=== PATIENT | male | born 1955 | race Caucasian/White ===

== ENCOUNTER 2017-12-16 10:30 | Inpatient (IN) | payer OTHER, MEDICARE, MEDICAID ==
[~2017-12-16] VITALS: Ht 175.3 cm; Wt 92.5 kg
[2017-12-16 11:16] LABS: BASOPHILS # (AUTO) 0.7 /CMM (0.0-0.2); BASOPHILS % (AUTO) 4.2 % (0.0-2.0); EOSINOPHILS # (AUTO) 0.1 /CMM (0.0-0.7); EOSINOPHILS % (AUTO) 0.9 % (0.0-6.0); HEMATOCRIT 34 % (39-51); HEMOGLOBIN 11.5 g/dL (13.5-17.5); LYMPHOCYTES # (AUTO) 2.2 /CMM (0.8-4.8); LYMPHOCYTES % (AUTO) 13.7 % (20.0-44.0); MEAN CORPUSCULAR HEMOGLOBIN 27 PG (26.0-33.0); MEAN CORPUSCULAR HGB CONC 33 g/dl (31.0-36.0); MEAN CORPUSCULAR VOLUME 80 fL (80-96); MONOCYTES # (AUTO) 0.9 /CMM (0.1-1.30); MONOCYTES % (AUTO) 5.3 % (2.0-12.0); NEUTROPHILS # (AUTO) 12.5 /CMM (1.8-8.9); NEUTROPHILS % (AUTO) 75.9 % (43.0-81.0); PLATELET COUNT (AUTO) 176 /CMM (150-450); RDW COEFFICIENT OF VARIATION 20.3 (11.5-15.0); RED BLOOD CELL COUNT(AUTO) 4.28 MIL/uL (4.5-6.0); WHITE BLOOD COUNT (AUTO) 16.4 K/uL (4.3-11.0)
[2017-12-16 11:29] LABS: CALCIUM, SERUM 9.6 mg/dL (8.5-10.1); CARBON DIOXIDE 24 mmol/L (21-32); CHLORIDE 96 mmol/L (98-107); GLUCOSE 167 mg/dL (74-106); SODIUM SERUM 132 mmol/L (136-145); UREA NITROGEN, BLOOD 35 mg/dL (7-18)
[2017-12-16 11:30] LABS: CREATININE 9.8 mg/dL (0.6-1.3)
[2017-12-16 11:35] LABS: ALANINE AMINOTRANSFERASE 22 U/L (12-78); ALBUMIN 2.9 g/dL (3.4-5.0); ALKALINE PHOSPHATASE 55 U/L (46-116); ASPARTATE AMINOTRANSFERASE 20 U/L (15-37); BILIRUBIN,DIRECT 0.2 mg/dL (0.0-0.2); BILIRUBIN,TOTAL 0.6 mg/dL (0.2-1.0)
[2017-12-16 11:37] LABS: TROPONIN I < 0.017 ng/mL (0.00-0.056)
[2017-12-16] MEDS ORDERED: DEXT50DI8 IV (12:08)
[2017-12-16] MEDS ORDERED: FOLI0.8T2 PO (12:08)
[2017-12-16] MEDS ORDERED: IPRA0.2S9 IH (12:08)
[2017-12-16] MEDS ORDERED: ROSU10TA PO (12:08)
[2017-12-16] MEDS ORDERED: HYDR-552 PO (12:08)
[2017-12-16] MEDS ORDERED: PANT40TA2 PO (12:08)
[2017-12-16] MEDS ORDERED: BETA15CR4 TP (12:08)
[2017-12-16] MEDS ORDERED: AMLO10TA4 PO (12:08)
[2017-12-16] MEDS ORDERED: HEPA500013 SQ (12:08)
[2017-12-16] MEDS ORDERED: BUME1TAB4 PO (12:08)
[2017-12-16] MEDS ORDERED: ASPI-1152 PO (12:08)
[2017-12-16] MEDS ORDERED: ACET-868 PO (12:08)
[2017-12-16] MEDS ORDERED: CARV25TA2 PO (12:08)
[2017-12-16] MEDS ORDERED: LINA5TAB PO (12:08)
[2017-12-16] MEDS ORDERED: CLON0.1T PO (12:08)
[2017-12-16] MEDS ORDERED: OMEG1CAP40 PO (12:08)
[2017-12-16] MEDS ORDERED: INSU100V3 SQ (12:08)
[2017-12-16] MEDS ORDERED: ALLA266C2 TP (12:08)
[2017-12-16] MEDS ORDERED: HYDR100T27 PO (12:08)
[2017-12-16] MEDS ORDERED: ALBU1.257 IH (12:08)
[2017-12-16] MEDS ORDERED: DOCU-141 PO (12:08)
[2017-12-16] MEDS ORDERED: CEFTRIAXONE 1GM BAG (ER ONLY) 50 ML IV ONE ×2 (12:30→12:37)
[2017-12-16 12:32] LABS: PARTIAL THROMBOPLASTIN TIME > 170 SEC (23-34)
[2017-12-16 14:00] VITALS: BP 122/57
[2017-12-16] MEDS ORDERED: Z GUARD REMEDY 2 OZ OINT TP PRN ×2 (15:30→17:30)
[2017-12-16 16:00] VITALS: BP 122/57
[2017-12-16] MEDS ORDERED: IPRATROPIUM NEB FS 0.5 MG/2.5 ML AMPUL.NEB IH PRN (17:30)
[2017-12-16] MEDS ORDERED: MAG HYDROX/AL HYDROX/SIMETH 30 ML UDC PO PRN (17:30)
[2017-12-16] MEDS ORDERED: DEXTROSE 50%-WATER 50 ML DISP.SYRIN IV PRN (17:30)
[2017-12-16] MEDS ORDERED: ALBUTEROL HALF STRENGTH 1.25 MG/3 ML VIAL.NEB IH PRN (17:30)
[2017-12-16] MEDS ORDERED: ONDANSETRON HCL/PF 4 MG/2 ML VIAL IVP PRN (17:30)
[2017-12-16] MEDS ORDERED: HYDROCODONE/APAP 5/325MG 1 EACH TABLET PO PRN (17:30)
[2017-12-16] MEDS ORDERED: MAGNESIUM HYDROXIDE 30 ML UDC PO PRN (17:30)
[2017-12-16] MEDS: BLOOD SUGAR DIAGNOSTIC 1 EACH STRIP IN SCH ×2 (17:37→21:52)
[2017-12-16] MEDS: hydrALAZINE HCL 50 MG TABLET PO SCH (18:13)
[2017-12-16 20:00] VITALS: BP 124/50
[2017-12-16] MEDS ORDERED: Medication Not On Formulary EA (Omega-3 Fatty Acids/Fish Oil (Omega 3 1,000 Mg Softgel) PO SCH (21:00)
[2017-12-16] MEDS: ACETAMINOPHEN 325 MG TABLET PO PRN (21:35)
[2017-12-16] MEDS: HEPARIN SODIUM, PORCINE 5000 UNITS/1 ML VIAL SQ SCH (21:41)
[2017-12-16] MEDS: CARVEDILOL 12.5 MG TABLET PO SCH (21:42)
[2017-12-16] MEDS: CLONIDINE HCL 0.1 MG TABLET PO SCH (21:43)
[2017-12-16] MEDS: DOCUSATE SODIUM 100 MG CAPSULE PO SCH (21:51)
[2017-12-17] VITALS: BP 108/56
[2017-12-17 04:00] VITALS: BP 126/52
[2017-12-17] MEDS: hydrALAZINE HCL 50 MG TABLET PO SCH ×3 (05:28→20:33)
[2017-12-17] MEDS: CLONIDINE HCL 0.1 MG TABLET PO SCH ×3 (05:28→20:33)
[2017-12-17] MEDS: PANTOPRAZOLE 40 MG TABLET.DR PO SCH (06:48)
[2017-12-17] MEDS: BLOOD SUGAR DIAGNOSTIC 1 EACH STRIP IN SCH ×4 (06:48→22:00)
[2017-12-17 07:48] LABS: BASOPHILS % (AUTO) 0.4 % (0.0-2.0); EOSINOPHILS # (AUTO) 0.1 /CMM (0.0-0.7); EOSINOPHILS % (AUTO) 1.2 % (0.0-6.0); HEMATOCRIT 31 % (39-51); HEMOGLOBIN 10.5 g/dL (13.5-17.5); LYMPHOCYTES # (AUTO) 2.3 /CMM (0.8-4.8); LYMPHOCYTES % (AUTO) 21.5 % (20.0-44.0); MEAN CORPUSCULAR HEMOGLOBIN 27 PG (26.0-33.0); MEAN CORPUSCULAR HGB CONC 34 g/dl (31.0-36.0); MEAN CORPUSCULAR VOLUME 81 fL (80-96); MONOCYTES # (AUTO) 1.5 /CMM (0.1-1.30); MONOCYTES % (AUTO) 13.5 % (2.0-12.0); NEUTROPHILS # (AUTO) 6.9 /CMM (1.8-8.9); NEUTROPHILS % (AUTO) 63.4 % (43.0-81.0); PLATELET COUNT (AUTO) 165 /CMM (150-450); RDW COEFFICIENT OF VARIATION 21.8 (11.5-15.0); RED BLOOD CELL COUNT(AUTO) 3.84 MIL/uL (4.5-6.0); WHITE BLOOD COUNT (AUTO) 10.8 K/uL (4.3-11.0)
[2017-12-17 08:00] VITALS: BP 113/56
[2017-12-17 08:04] LABS: ALBUMIN 2.8 g/dL (3.4-5.0); BILIRUBIN,TOTAL 0.5 mg/dL (0.2-1.0); CALCIUM, SERUM 9.1 mg/dL (8.5-10.1); MAGNESIUM 2.3 mg/dL (1.8-2.4); PHOSPHORUS 3.9 mg/dL (2.5-4.9); POTASSIUM 4.6 mmol/L (3.5-5.1); TOTAL PROTEIN, SERUM 6.3 g/dL (6.4-8.2)
[2017-12-17 08:12] LABS: THYROID STIMULATING HORMONE 0.365 uIU/mL (0.358-3.74)
[2017-12-17] MEDS: Z GUARD REMEDY 2 OZ OINT TP SCH ×2 (09:00→16:52)
[2017-12-17] MEDS: CARVEDILOL 12.5 MG TABLET PO SCH ×2 (09:00→20:33)
[2017-12-17] MEDS: HEPARIN SODIUM, PORCINE 5000 UNITS/1 ML VIAL SQ SCH ×2 (09:00→20:34)
[2017-12-17] MEDS: LINAGLIPTIN 5 MG TABLET PO SCH (09:33)
[2017-12-17] MEDS: VIT B CMPLX 3/FA/VIT C/BIOTIN 1 TAB TABLET PO SCH (09:33)
[2017-12-17] MEDS: ASPIRIN EC 81 MG TABLET.DR PO SCH (09:33)
[2017-12-17] MEDS: ATORVASTATIN 10 MG TABLET PO SCH (09:34)
[2017-12-17] MEDS: BETAMETHASONE DIP 0.05% CREAM 15 GM TUBE TP SCH (09:34)
[2017-12-17] MEDS: AMLODIPINE BESYLATE 10 MG TABLET PO SCH (09:34)
[2017-12-17 16:07] VITALS: BP 133/56
[2017-12-17] MEDS: ACETAMINOPHEN 325 MG TABLET PO PRN (19:44)
[2017-12-17 20:00] VITALS: BP 149/54
[2017-12-17 20:11] VITALS: BP 149/54
[2017-12-17] MEDS: DOCUSATE SODIUM 100 MG CAPSULE PO SCH (22:00)
[2017-12-18] MEDS: hydrALAZINE HCL 50 MG TABLET PO SCH ×3 (05:25→22:07)
[2017-12-18] MEDS: CLONIDINE HCL 0.1 MG TABLET PO SCH ×3 (05:25→21:00)
[2017-12-18] MEDS: BLOOD SUGAR DIAGNOSTIC 1 EACH STRIP IN SCH ×4 (06:28→22:03)
[2017-12-18] MEDS: INSULIN REGULAR, HUMAN 100 UNIT/ML 3 ML VIAL SQ PRN (06:33)
[2017-12-18] MEDS: ACETAMINOPHEN 325 MG TABLET PO PRN (06:39)
[2017-12-18 07:14] LABS: BASOPHILS # (AUTO) 0.1 /CMM (0.0-0.2); BASOPHILS % (AUTO) 0.5 % (0.0-2.0); EOSINOPHILS # (AUTO) 0.2 /CMM (0.0-0.7); EOSINOPHILS % (AUTO) 1.4 % (0.0-6.0); HEMATOCRIT 32 % (39-51); HEMOGLOBIN 10.9 g/dL (13.5-17.5); LYMPHOCYTES # (AUTO) 2.1 /CMM (0.8-4.8); LYMPHOCYTES % (AUTO) 20.5 % (20.0-44.0); MEAN CORPUSCULAR HEMOGLOBIN 28 PG (26.0-33.0); MEAN CORPUSCULAR HGB CONC 34 g/dl (31.0-36.0); MEAN CORPUSCULAR VOLUME 81 fL (80-96); MONOCYTES # (AUTO) 1.2 /CMM (0.1-1.30); MONOCYTES % (AUTO) 11.6 % (2.0-12.0); NEUTROPHILS # (AUTO) 6.9 /CMM (1.8-8.9); PLATELET COUNT (AUTO) 181 /CMM (150-450); RDW COEFFICIENT OF VARIATION 21.8 (11.5-15.0); RED BLOOD CELL COUNT(AUTO) 3.96 MIL/uL (4.5-6.0); WHITE BLOOD COUNT (AUTO) 10.5 K/uL (4.3-11.0)
[2017-12-18 07:21] LABS: POTASSIUM 4.6 mmol/L (3.5-5.1)
[2017-12-18 07:27] LABS: CREATININE 12.9 mg/dL (0.6-1.3)
[2017-12-18 08:00] VITALS: BP 134/56
[2017-12-18] MEDS: AMLODIPINE BESYLATE 10 MG TABLET PO SCH (09:00)
[2017-12-18] MEDS: LINAGLIPTIN 5 MG TABLET PO SCH (09:00)
[2017-12-18] MEDS: CARVEDILOL 12.5 MG TABLET PO SCH ×2 (10:50→22:02)
[2017-12-18] MEDS: PANTOPRAZOLE 40 MG TABLET.DR PO SCH (10:51)
[2017-12-18] MEDS: ASPIRIN EC 81 MG TABLET.DR PO SCH (10:51)
[2017-12-18] MEDS: VIT B CMPLX 3/FA/VIT C/BIOTIN 1 TAB TABLET PO SCH (10:51)
[2017-12-18] MEDS: ATORVASTATIN 10 MG TABLET PO SCH (10:52)
[2017-12-18] MEDS: HEPARIN SODIUM, PORCINE 5000 UNITS/1 ML VIAL SQ SCH ×2 (10:54→22:40)
[2017-12-18] MEDS: Z GUARD REMEDY 2 OZ OINT TP SCH ×2 (10:55→17:14)
[2017-12-18] MEDS: MUPIROCIN OINT 2% 22 GM TUBE SCH ×2 (11:42→22:06)
[2017-12-18] MEDS: CEFTRIAXONE 1 G in IV D5W 50 ML IV SCH (11:42)
[2017-12-18] MEDS: BETAMETHASONE DIP 0.05% CREAM 15 GM TUBE TP SCH (11:43)
[2017-12-18 12:00] VITALS: BP 130/69
[2017-12-18 12:09] LABS: PTH, INTACT 21 pg/mL (15-65)
[2017-12-18 20:00] VITALS: BP 116/52
[2017-12-18] MEDS: DOCUSATE SODIUM 100 MG CAPSULE PO SCH ×2 (22:01→22:13)
[2017-12-19] MEDS: CLONIDINE HCL 0.1 MG TABLET PO SCH ×3 (05:00→20:43)
[2017-12-19] MEDS: hydrALAZINE HCL 50 MG TABLET PO SCH ×3 (05:28→20:40)
[2017-12-19] MEDS: BLOOD SUGAR DIAGNOSTIC 1 EACH STRIP IN SCH ×4 (06:34→21:52)
[2017-12-19] MEDS: INSULIN REGULAR, HUMAN 100 UNIT/ML 3 ML VIAL SQ PRN ×2 (06:37→11:59)
[2017-12-19 08:00] VITALS: BP 129/62
[2017-12-19] MEDS: ATORVASTATIN 10 MG TABLET PO SCH (08:47)
[2017-12-19] MEDS: ASPIRIN EC 81 MG TABLET.DR PO SCH (08:47)
[2017-12-19] MEDS: LINAGLIPTIN 5 MG TABLET PO SCH (08:47)
[2017-12-19] MEDS: AMLODIPINE BESYLATE 10 MG TABLET PO SCH (08:47)
[2017-12-19] MEDS: CARVEDILOL 12.5 MG TABLET PO SCH ×2 (08:47→20:41)
[2017-12-19] MEDS: VIT B CMPLX 3/FA/VIT C/BIOTIN 1 TAB TABLET PO SCH (08:47)
[2017-12-19] MEDS: PANTOPRAZOLE 40 MG TABLET.DR PO SCH (08:48)
[2017-12-19] MEDS: Z GUARD REMEDY 2 OZ OINT TP SCH ×2 (08:49→16:53)
[2017-12-19] MEDS: MUPIROCIN OINT 2% 22 GM TUBE SCH ×2 (08:50→20:43)
[2017-12-19] MEDS: BETAMETHASONE DIP 0.05% CREAM 15 GM TUBE TP SCH (08:51)
[2017-12-19] MEDS: HEPARIN SODIUM, PORCINE 5000 UNITS/1 ML VIAL SQ SCH ×2 (08:51→20:45)
[2017-12-19 10:09] LABS: POTASSIUM 4.5 mmol/L (3.5-5.1)
[2017-12-19 10:28] LABS: CREATININE 10.8 mg/dL (0.6-1.3)
[2017-12-19] MEDS: CEFTRIAXONE 1 G in IV D5W 50 ML IV SCH (10:42)
[2017-12-19 12:58] LABS: INR 0.95 (0.87-1.13)
[2017-12-19] MEDS: DOCUSATE SODIUM 100 MG CAPSULE PO SCH (21:52)
[2017-12-19 22:00] VITALS: BP 136/63
[2017-12-20] MEDS: hydrALAZINE HCL 50 MG TABLET PO SCH ×3 (06:00→22:30)
[2017-12-20] MEDS: CLONIDINE HCL 0.1 MG TABLET PO SCH ×3 (06:00→22:30)
[2017-12-20] MEDS: BLOOD SUGAR DIAGNOSTIC 1 EACH STRIP IN SCH ×4 (06:02→21:36)
[2017-12-20 08:00] VITALS: BP 124/55
[2017-12-20] MEDS: ATORVASTATIN 10 MG TABLET PO SCH (08:36)
[2017-12-20] MEDS: ASPIRIN EC 81 MG TABLET.DR PO SCH (08:36)
[2017-12-20] MEDS: LINAGLIPTIN 5 MG TABLET PO SCH (08:36)
[2017-12-20] MEDS: VIT B CMPLX 3/FA/VIT C/BIOTIN 1 TAB TABLET PO SCH (08:36)
[2017-12-20] MEDS: CARVEDILOL 12.5 MG TABLET PO SCH ×2 (08:37→21:20)
[2017-12-20] MEDS: PANTOPRAZOLE 40 MG TABLET.DR PO SCH (08:37)
[2017-12-20] MEDS: HEPARIN SODIUM, PORCINE 5000 UNITS/1 ML VIAL SQ SCH ×2 (08:38→21:21)
[2017-12-20] MEDS: MUPIROCIN OINT 2% 22 GM TUBE SCH ×2 (08:40→21:36)
[2017-12-20] MEDS: Z GUARD REMEDY 2 OZ OINT TP SCH ×2 (08:40→17:29)
[2017-12-20] MEDS: AMLODIPINE BESYLATE 10 MG TABLET PO SCH (09:00)
[2017-12-20] MEDS: BETAMETHASONE DIP 0.05% CREAM 15 GM TUBE TP SCH (09:00)
[2017-12-20] MEDS: CEFTRIAXONE 1 G in IV D5W 50 ML IV SCH (11:46)
[2017-12-20] MEDS: INSULIN REGULAR, HUMAN 100 UNIT/ML 3 ML VIAL SQ PRN (11:54)
[2017-12-20 12:09] LABS: *SPE A/G RATIO 1.1 (0.7-1.7); *SPE ALPHA-1-GLOBULIN 0.2 g/dL (0.0-0.4); *SPE BETA GLOBULIN 0.6 g/dL (0.7-1.3); *SPE GLOBULIN, TOTAL 2.8 g/dL (2.2-3.9); *SPE M-SPIKE Not Observed g/dL (Not Observed)
[2017-12-20] MEDS: ACETAMINOPHEN 325 MG TABLET PO PRN (15:50)
[2017-12-20 16:00] VITALS: BP 124/53
[2017-12-20] MEDS: DOCUSATE SODIUM 100 MG CAPSULE PO SCH (21:20)
[2017-12-20 22:00] VITALS: BP 125/56
[2017-12-21] MEDS: hydrALAZINE HCL 50 MG TABLET PO SCH ×3 (05:23→21:03)
[2017-12-21] MEDS: CLONIDINE HCL 0.1 MG TABLET PO SCH ×3 (05:24→21:02)
[2017-12-21] MEDS: BLOOD SUGAR DIAGNOSTIC 1 EACH STRIP IN SCH ×4 (06:47→21:32)
[2017-12-21 07:46] VITALS: BP 103/52
[2017-12-21 07:48] LABS: CALCIUM, SERUM 8.6 mg/dL (8.5-10.1); CREATININE 10.2 mg/dL (0.6-1.3); POTASSIUM 4.5 mmol/L (3.5-5.1)
[2017-12-21] MEDS: ASPIRIN EC 81 MG TABLET.DR PO SCH (08:08)
[2017-12-21] MEDS: VIT B CMPLX 3/FA/VIT C/BIOTIN 1 TAB TABLET PO SCH (08:08)
[2017-12-21] MEDS: LINAGLIPTIN 5 MG TABLET PO SCH (08:08)
[2017-12-21] MEDS: PANTOPRAZOLE 40 MG TABLET.DR PO SCH (08:08)
[2017-12-21] MEDS: ATORVASTATIN 10 MG TABLET PO SCH (08:08)
[2017-12-21] MEDS: CARVEDILOL 12.5 MG TABLET PO SCH ×2 (08:09→21:02)
[2017-12-21] MEDS: HEPARIN SODIUM, PORCINE 5000 UNITS/1 ML VIAL SQ SCH ×2 (08:10→21:04)
[2017-12-21] MEDS: MUPIROCIN OINT 2% 22 GM TUBE SCH ×2 (08:13→21:11)
[2017-12-21] MEDS: Z GUARD REMEDY 2 OZ OINT TP SCH ×2 (08:13→16:32)
[2017-12-21] MEDS: BETAMETHASONE DIP 0.05% CREAM 15 GM TUBE TP SCH (08:14)
[2017-12-21] MEDS: AMLODIPINE BESYLATE 10 MG TABLET PO SCH (08:27)
[2017-12-21] MEDS: CEFTRIAXONE 1 G in IV D5W 50 ML IV SCH (11:42)
[2017-12-21] MEDS: ACETAMINOPHEN 325 MG TABLET PO PRN ×2 (15:26→21:02)
[2017-12-21 16:00] VITALS: BP 135/50
[2017-12-21 20:00] VITALS: BP 131/57
[2017-12-21] MEDS: INSULIN REGULAR, HUMAN 100 UNIT/ML 3 ML VIAL SQ PRN (21:34)
[2017-12-21] MEDS: DOCUSATE SODIUM 100 MG CAPSULE PO SCH (21:51)
[2017-12-22] MEDS: hydrALAZINE HCL 50 MG TABLET PO SCH ×2 (05:26→12:00)
[2017-12-22] MEDS: CLONIDINE HCL 0.1 MG TABLET PO SCH ×2 (05:26→12:01)
[2017-12-22] MEDS: BLOOD SUGAR DIAGNOSTIC 1 EACH STRIP IN SCH ×2 (06:09→12:01)
[2017-12-22] MEDS: INSULIN REGULAR, HUMAN 100 UNIT/ML 3 ML VIAL SQ PRN (06:12)
[2017-12-22 08:00] VITALS: BP 138/57
[2017-12-22] MEDS: PANTOPRAZOLE 40 MG TABLET.DR PO SCH (08:43)
[2017-12-22] MEDS: ASPIRIN EC 81 MG TABLET.DR PO SCH (08:43)
[2017-12-22] MEDS: LINAGLIPTIN 5 MG TABLET PO SCH (08:43)
[2017-12-22] MEDS: ATORVASTATIN 10 MG TABLET PO SCH (08:43)
[2017-12-22] MEDS: VIT B CMPLX 3/FA/VIT C/BIOTIN 1 TAB TABLET PO SCH (08:43)
[2017-12-22] MEDS: CARVEDILOL 12.5 MG TABLET PO SCH (08:44)
[2017-12-22] MEDS: AMLODIPINE BESYLATE 10 MG TABLET PO SCH (08:44)
[2017-12-22] MEDS: BETAMETHASONE DIP 0.05% CREAM 15 GM TUBE TP SCH (08:45)
[2017-12-22] MEDS: Z GUARD REMEDY 2 OZ OINT TP SCH (08:45)
[2017-12-22] MEDS: MUPIROCIN OINT 2% 22 GM TUBE SCH (08:45)
[2017-12-22] MEDS: HEPARIN SODIUM, PORCINE 5000 UNITS/1 ML VIAL SQ SCH (08:47)
[2017-12-22] MEDS: CEFTRIAXONE 1 G in IV D5W 50 ML IV SCH (11:00)
[2017-12-22 12:01] VITALS: BP 130/60
== END 2017-12-22 13:30 | disposition home or self-care (01) | DRG 871 ==
LOC: ER 10:31 → TELE 12:34 → MED 12-17 08:34
PROVIDERS: ADMIT Nurse Practitioner Acute Care; ATTEND Nurse Practitioner Acute Care
DX: A41.9 Sepsis, unspecified organism (principal); J96.01 Acute respiratory failure with hypoxia; I13.2 Hypertensive heart and chronic kidney disease with heart failure and with stage 5 chronic kidney disease, or end stage renal disease; G92 Toxic encephalopathy; E44.0 Moderate protein-calorie malnutrition; N18.6 End stage renal disease; N17.9 Acute kidney failure, unspecified; I69.351 Hemiplegia and hemiparesis following cerebral infarction affecting right dominant side; N39.0 Urinary tract infection, site not specified; I50.32 Chronic diastolic (congestive) heart failure; M85.9 Disorder of bone density and structure, unspecified; E11.22 Type 2 diabetes mellitus with diabetic chronic kidney disease; E11.51 Type 2 diabetes mellitus with diabetic peripheral angiopathy without gangrene; I50.9 Heart failure, unspecified; Z87.01 Personal history of pneumonia (recurrent); Z79.4 Long term (current) use of insulin; Z79.82 Long term (current) use of aspirin; Z79.899 Other long term (current) drug therapy; Z98.890 Other specified postprocedural states; D63.8 Anemia in other chronic diseases classified elsewhere; E87.5 Hyperkalemia; Z99.2 Dependence on renal dialysis; I11.0 Hypertensive heart disease with heart failure
CPT/HCPCS: 36415; 70450-TC; 71045-TC; 76770-TC; 80048-TC; 80053-TC; 80061-TC; 80074; 80076-TC; 82550-TC; 82962-TC; 83605-TC; 83735-TC; 83970; 84100-TC; 84155; 84165; 84443-TC; 84484-TC; 85025-TC; 85730-TC; 87040-TC; 87081-TC; 87086-TC; 90935-TC; A4606; J0696; J1644; J1815; J7050; J7060; Z7610